=== PATIENT | male | born 1965 | race Caucasian/White ===

== ENCOUNTER 2017-02-08 08:07 | Day surgery (SDC) | payer OTHER ==
[~2017-02-08] VITALS: Ht 177.8 cm; Wt 109.9 kg
[~2017-02-08 08:07] MED LIST: ACIPHEX20 MG PO; ASPIRIN 81M81 MG/TA2 PO; CALCIUM CARBONATE PO; PRINIVIL10 MG PO; ZOCOR 40MG40 MG PO
[2017-02-08 09:02] VITALS: BP 168/101; PULSE 70; TEMP 98.6
[2017-02-08] MEDS ORDERED: XANAX 0.5MG0.5 MG PO (09:11)
[2017-02-08] MEDS ORDERED: LEXAPRO 5MG5 MG PO (09:12)
[2017-02-08] MEDS ORDERED: NEXIUM 40MG40 MG PO (09:14)
[2017-02-08] MEDS ORDERED: NORCO 325 MG-7.1 TAB PO (09:14)
[2017-02-08 12:15] VITALS: BP 135/81; PULSE 76; TEMP 97.4
[2017-02-08 12:30] VITALS: BP 142/81; PULSE 74
[2017-02-08 12:45] VITALS: BP 145/72; PULSE 87
[2017-02-08 13:00] VITALS: BP 136/65; PULSE 83
== END 2017-02-08 13:55 | disposition home or self-care (01) ==
LOC: SDCO 08:07
DX: S83.242A Other tear of medial meniscus, current injury, left knee, initial encounter (principal); M17.12 Unilateral primary osteoarthritis, left knee; M22.42 Chondromalacia patellae, left knee; M94.262 Chondromalacia, left knee; M71.22 Synovial cyst of popliteal space [Baker], left knee
CPT/HCPCS: J0171; J0690; J1100; J1170; J1885; J2405; J2704; J3010; J7120

== ENCOUNTER → 2017-04-11 | Outpatient (CLI) | payer OTHER ==
[~2017-04-11] MED LIST changes: +LEXAPRO 5MG5 MG PO; +NEXIUM 40MG40 MG PO; +NORCO 325 MG-7.1 TAB PO; +XANAX 0.5MG0.5 MG PO
== END ==
LOC: COL.VAS 10:38
DX: M79.662 Pain in left lower leg (principal); R60.0 Localized edema

== ENCOUNTER → 2017-12-20 | Outpatient (REF) ==
[2017-12-20 15:58] LABS: PSA-TOTAL 1.17 ng/mL (0-4)
[2017-12-20 16:14] LABS: THYROID STIMULATING HORMONE 0.958 uIU/mL (0.465-4.680)
== END ==
LOC: ZLAB.WCH 15:00
PROVIDERS: Internal Medicine
DX: Z01.89 Encounter for other specified special examinations (principal)
CPT/HCPCS: G0103